=== PATIENT | male | born 1965 | race Native Hawaiian/Other Pacific Islander ===

== ENCOUNTER 2022-01-10 02:40 | Observation (INO) | payer BC ==
[~2022-01-10] VITALS: Ht 170.2 cm; Wt 100.2 kg
[2022-01-10 02:50] VITALS: BP 138/91; TEMP 98.3
[2022-01-10 03:05] LABS: PLATELET COUNT 239 K/uL (142-355)
[2022-01-10 03:11] LABS: POTASSIUM 3.6 mmol/L (3.6-5.2)
[2022-01-10 03:21] LABS: PARTIAL THROMBOPLASTIN TIME 24.6 SECONDS (24.5-33.6)
[2022-01-10 03:30] VITALS: BP 141/71
[2022-01-10 05:47] VITALS: BP 135/74; TEMP 98.4; Ht 170.2 cm; Wt 100.2 kg
[2022-01-10 08:00] VITALS: BP 143/74; TEMP 98.2
[2022-01-10 12:00] VITALS: BP 141/69; TEMP 98.3
[2022-01-10] MEDS ORDERED: LOSA50TA PO (15:32)
[2022-01-10] MEDS ORDERED: LEVO0.1224 PO (15:32)
== END 2022-01-10 16:20 | disposition home or self-care (01) ==
LOC: ED 02:40 → MED/SURG 03:30
PROVIDERS: Hospitalist; ADMIT Internal Medicine; ATTEND Internal Medicine
DX: I47.1 Supraventricular tachycardia (principal); E03.8 Other specified hypothyroidism; I10 Essential (primary) hypertension; R07.89 Other chest pain; R06.02 Shortness of breath
CPT/HCPCS: 36415; 80053; 82550; 83880; 84443; 84484; 85027; 85379; 85610; 85730; 87635; 93005; 96372; 99220; 99284; G0378; J1650; U0003

== ENCOUNTER 2022-05-13 17:39 | Emergency (ER) | payer BC ==
[~2022-05-13] VITALS: Ht 170.2 cm; Wt 97.5 kg
[~2022-05-13 17:39] MED LIST: LEVO0.1224 PO; LOSA50TA PO
[2022-05-13 18:29] LABS: PLATELET COUNT 218 K/uL (142-355)
[2022-05-13 18:40] LABS: POTASSIUM 3.7 mmol/L (3.6-5.2)
[2022-05-13 19:10] LABS: PARTIAL THROMBOPLASTIN TIME 30.3 SECONDS (24.5-33.6)
[2022-05-13 21:30] VITALS: BP 112/69; TEMP 98
== END 2022-05-13 21:35 | disposition short-term general hospital (02) ==
LOC: ED 17:39
PROVIDERS: Emergency Medicine
DX: I48.20 Chronic atrial fibrillation, unspecified (principal); Z11.52 Encounter for screening for COVID-19
CPT/HCPCS: 36415; 80053; 80307; 81002; 81015; 83735; 83880; 84439; 84443; 84484; 85027; 85379; 85610; 85730; 87635; 93005; 96360; 96365; 96375; 96376; 99285; J0153; J3490; U0003

== ENCOUNTER 2022-06-06 21:42 | Emergency (ER) | payer BC ==
[~2022-06-06] VITALS: Ht 170.2 cm; Wt 96.6 kg
[2022-06-06 22:29] LABS: PLATELET COUNT 203 K/uL (142-355)
[2022-06-06 22:40] LABS: POTASSIUM 3.8 mmol/L (3.6-5.2)
[2022-06-06 22:55] LABS: PARTIAL THROMBOPLASTIN TIME 26.1 SECONDS (24.5-33.6)
[2022-06-07 01:25] VITALS: BP 99/51; TEMP 98.7
== END 2022-06-07 01:25 | disposition short-term general hospital (02) ==
LOC: ED 21:42
PROVIDERS: Hospitalist
DX: I48.20 Chronic atrial fibrillation, unspecified (principal); Z11.52 Encounter for screening for COVID-19
CPT/HCPCS: 36591; 80053; 80320; 82550; 83880; 84443; 84484; 85027; 85379; 85610; 85730; 87635; 93005; 96365; 96366; 96375; 99284; J1644; J2270; J2405; J3490; U0003

== ENCOUNTER 2022-06-17 10:06 | Outpatient (CLI) | payer BC | END 2022-06-17 19:04 | disposition home or self-care (01) | LOC: RESP 10:06 | PROVIDERS: ATTEND Nurse Practitioner | DX: I48.91 Unspecified atrial fibrillation (principal); I10 Essential (primary) hypertension ==